=== PATIENT | male | born 1970 | race Caucasian/White ===

== ENCOUNTER 2017-04-09 03:56 | Inpatient (IN) | payer OTHER ==
[2017-04-09] VITALS (12 sets, daily range): BP systolic 110–128; BP diastolic 57–73; PULSE 74–103; RESP 16–19; O2SAT 95–100
[~2017-04-09] VITALS: Ht 188 cm; Wt 113.9 kg
[~2017-04-09 03:56] MED LIST: HYDR-4003 PO; SULF1TAB35 PO
--- NOTE | 2017-04-09 04:08 | ED.REPORT ---
HPI-Syncope Date of Service Apr 09, 2017 ED Provider: Jason Simon MD The pt is a 46 y/o male with hx of diabetes who presents to the ED after having a syncopal episode. Per the pt's , the pt got out of bed to go to the bathroom and then fell to the ground. When he tried to stand up, the patient fell and fainted again. He also complains of diarrhea. Patient denies leg swelling, nausea, dysuria or vomiting. The patient reports that when he woke up , he was extremely thirsty and only had a few sips of water yesterday. Nursing Notes Stated Complaint: FAINTED Chief Complaint: General Complaint Nursing Notes Reviewed: Yes Allergies: Coded Allergies: No Known Allergies (Unverified , 02/23/16) Scheduled Sulfamethoxazole/Trimeth 800-160 mg (Bactrim DS 800-160 mg) 1 Each Tablet 1 TABLET PO BID Scheduled PRN Hydrocodone-Acetaminophen 5-325 mg (Hydrocodone-Acetaminophen 5-325 mg) 1 Each Tablet 1 TABLET PO Q4H PRN PRN For Pain General Time Seen by Provider: 04:18 Chief Complaint Other (sycnope) Syncope Description: Multiple episodes (two) Hx Obtained From: Patient, Spouse Arrived By: Walk-in Onset Occurred: Just prior to arrival Severity: Current: No pain currently Recent Healthcare: No recent doctor visit, No recent hospitalization Similar Sx Previous: No Past Medical History Past Medical History Reports: Diabetes mellitus, Denies: Congestive heart failure Past Surgical History None reported Smoking History Unknown if Ever Smoker Social History 6 packs of beer a week Drug Use: Denies drug use Other Social History: Good social support Ambulatory Status Independent Review of Systems GI: Reports: Diarrhea, Hematochezia, Denies: Nausea, Vomiting Neurologic: Reports: Lightheaded, Syncope Complete sys rev & neg: except as marked. Additional Review of Systems Male: Denies Dysuria Physical Exam Initial Vital Signs Vital Signs (First) Date Time Temp Pulse Resp B/P Pulse Ox O2 Delivery O2 Flow Rate FiO2 04/09/17 04:04 36.2 103 18 128/66 99 Room Air Initial VS: Reviewed, Vital signs abnormal Skin: No cyanosis General/Constitutional: Awake, Alert, No acute distress Respiratory / Chest: Atraumatic, Breath sounds NL, Breath sounds = bilat, No respiratory distress Cardiovascular: Heart rate NL, Regular rhythm, Heart sounds NL Lower Extremity / Pelvis / MS: Atraumatic, Inspection NL, Full range of motion Neurologic: Oriented X3, Speech NL Head / Eyes: Atraumatic, Normocephalic slightly dry lips Neck: Atraumatic, Supple, Full range of motion, No JVD Abdomen: Atraumatic, Soft, Non-tender Skin: Atraumatic, Color NL, No rash, Warm, Dry no diaphoresis good color Interpretation & Diagnostics Lab Results Interpretation Result Diagram: 04/09/17 0500 04/09/17 0500 Test 04/09/17 05:00 White Blood Count 8.3th/mm3 (3.8-10.1) Red Blood Count 4.41mil/mm3 (4.40-5.80) Hemoglobin 11.3g/dL (13.8-17.2) Hematocrit 34.5% (41.0-50.0) Mean Corpuscular Volume 78.2fL (81-100) Mean Corpuscular Hemoglobin 25.6pg (27.0-35.0) Mean Corpuscular Hemoglobin Concent 32.8% (32.0-37.0) Red Cell Distribution Width 16.4% (12.3-15.4) Platelet Count 268bil/L (150-400) Neutrophils (%) (Auto) 65.4% (40-74) Lymphocytes (%) (Auto) 21.4% (14-46) Monocytes (%) (Auto) 10.0% (4-12) Eosinophils (%) (Auto) 2.1% (0-5) Basophils (%) (Auto) 0.5% (0-3) Sodium Level 138mEq/L (134-144) Potassium Level 4.1mEq/L (3.5-5.2) Chloride Level 100mEq/L (97-108) Carbon Dioxide Level 26mmol/L (18-29) Blood Urea Nitrogen 35mg/dL (6-24) Creatinine 0.95mg/dL (0.76-1.27) Estimat Glomerular Filtration Rate 91mL/min (>59) Glucose Level 135mg/dL (60-99) Calcium Level 9.1mg/dL (8.5-10.1) Magnesium Level 2.0mg/dL (1.6-2.6) Total Bilirubin 0.3mg/dL (0.0-1.2) Aspartate Amino Transf (AST/SGOT) 17U/L (0-50) Alanine Aminotransferase (ALT/SGPT) 26U/L (0-44) Alkaline Phosphatase 57U/L (25-150) Total Protein 6.0g/dL (6.4-8.4) Albumin 3.5g/dL (3.4-5.0) Hold Chicas Top Tube Received (Received) Lab values outside NL range: no clinical significance. ECG Interpretation Time: 04:25 Interpreted by: ED physician Abnormal Rate: Rate (101) Rhythm / Conduction: Tachycardia Re-Eval/Medical Decision Med Decision/Clinical Course 46-year-old who had poor oral intake yesterday and developed a little bit of bloody diarrhea. He had a syncopal episode while in the bathroom. His labs are unremarkable. He's received a liter of saline at this time remained dizzy with standing. His care is being turned over changes fifth with continued rehydration. It is sig Source of Hx: Old records Re-Evaluation/Progress : Time of Eval: 05:52 Re-Evaluation/Progress Note: Pt became light headed when he stood up to go urinate. His diarrhea was present with blood. Discussed plan to test stool for blood and a transfer of care to Dr. Mcdaniel. The pt understands with the plan. All questions addressed at this time. Discharge & Departure Shift Change Sign-Out Patient Care Transferred: Yes Discussed Complaint(s): Yes Impression: Primary Impression: Syncope Syncope type: unspecified Qualified Code: R55 - Syncope and collapse Referrals: Ct Faust MD Care Transferred to: Dr. Mcdaniel Care Transferred at: 06:00 Scribe Attestation Portion of this note were transcribed by Maxwell Ash and Shruti Lamb. I, Dr. Jason Simon personally performed the history, physical exam and medical decision-making; I reviewed and confirmed the accuracy of the information in the transcribed note. Signed by: Maxwell Ash and Shruti Lamb, Colin, 04/09/17. copies to: Ct Faust MD, Howard L MD Apr 09, 2017 04:08 Maxwell Ash Apr 09, 2017 04:14 Dang Lamb Apr 09, 2017 04:43
[2017-04-09] MEDS ORDERED: 0.9% Sodium Chloride 1,000 ML IV ONE ×3 (04:17→08:39)
[2017-04-09 05:14] LABS: BASOPHILS % (AUTO) 0.5 % (0-3); EOSINOPHILS % (AUTO) 2.1 % (0-5); Mean Corpuscular Hemoglobin 25.6 pg (27.0-35.0); Mean Corpuscular Volume 78.2 fL (81-100); NEUTROPHILS % (AUTO) 65.4 % (40-74); Platelet Count 268 bil/L (150-400)
[2017-04-09 07:41] LABS: APPEARANCE,URINE HAZY (CLEAR,HAZY); COLOR,URINE STRAW (YELLOW); OCCULT BLOOD,URINE NEGATIVE (NEGATIVE); UROBILINOGEN,URINE NORMAL (NORMAL)
[2017-04-09] MEDS ORDERED: Pantoprazole Inj 80 MG, Pharmacy To Mix 1 EA in 0.9% Sodium Chloride 80 ML IV ONE ×2 (08:40)
[2017-04-09] MEDS ORDERED: Pantoprazole 4 mg/mL 10 mL Inj IVPUSH ONE (08:40)
[2017-04-09] MEDS ORDERED: Ketamine 10 mg/mL 20 mL Inj ONE (09:04)
[2017-04-09] MEDS ORDERED: Propofol 10,000 mCg/mL 20 mL Inj ONE (09:04)
[2017-04-09] MEDS ORDERED: Ondansetron 2 mg/mL 2 mL Inj IVPUSH PRN (10:50)
[2017-04-09] MEDS ORDERED: Polyethylene Glycol (PEG) 17 Gm Powder PO PRN (10:50)
[2017-04-09] MEDS: 0.9% Sodium Chloride 1,000 ML IV SCH ×2 (12:02→22:37)
[2017-04-09] MEDS ORDERED: OMEG-83 PO (12:25)
[2017-04-09] MEDS ORDERED: MULT-1018 PO (12:25)
--- NOTE | 2017-04-09 12:31 | PCM.HPMED ---
Subjective Date of Service Apr 09, 2017 Primary Provider: Admitting Physician: Kaveh Herrera MD Primary Care Physician: Nopcp Attending Physician: Kaveh Herrera MD Admit Status: From the Emergency Department, Full Admit, [facility] Telemetry Chief Complaint: Syncopal episode and melena History of Present Illness: This is a 46-year-old gentleman who has a history of diabetes mellitus 2, diet controlled. 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 This is related to a right arm biceps tendon partial rupture but also for general pain associated with his job and a recent move. He has had epigastric abdominal pain for 10-12 days without dyspepsia, nausea, vomiting or diarrhea. The patient had a malodorous stool last night and then went up to get to the bathroom at 3 in the morning had 2 syncopal episodes. He became somewhat diaphoretic and then had shweta melena. The patient presented to the ER review is found to be orthostatic but not hypotensive. He was also not anemic. He was started on Protonix drip. GI was consulted directly from the emergency department. Dr. Crum. The patient has no known history of ulcers. He was wondering about hypoglycemia with his history of diabetes. His weight has been stable. He denies recent fevers or chills. No hematemesis. 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 No distress. Fluent speech. Normal affect. Normal skull. Normal nose and ears. Anicteric sclera, symmetric pupils Oropharynx is unremarkable, no facial droop. Neck is supple, normal thyroid. No adenopathy. Lungs are clear, normal effort rate. Heart is regular without murmur gallop or rub. Abdomen soft, nondistended or tender. Extremities are free of pedal edema. Good radial and pedal pulses. Skin is free of rash, lesions. No petechiae or ecchymosis. Joints are grossly normal. Cranial nerves are grossly normal. Motor strength is normal in all extremities. Normal muscular tone. Lab and Diagnostics Result Diagram: 04/09/17 0855 04/09/17 0500 Assessment & Plan 1. Upper GI bleed, present on admission and active. The plan is nothing by mouth, Protonix drip and upper endoscopy per gastroenterology today. We will also follow serial hematocrits to rule out evidence of acute blood loss anemia. 2. Diabetes mellitus 2, present on admission and stable. The plan is to follow blood sugars as needed. Correctional lispro when necessary. The patient is full resuscitation, confirmed the time of admission Admitted to inpatient status, 2 night's length of stay is anticipated. Pain Evaluation: Adequate Pain Control Resuscitation Status: CPR: Attempt Resuscitation Time spent 40 minutes Kaveh Herrera MD Apr 09, 2017 12:31
--- NOTE | 2017-04-09 13:41 | CONS ---
[address] [address] CONSULTATION REPORT PATIENT: ARMANDO MCLAUGHLIN : 1970 MR#: [id number] ADMIT: 04/09/2017 JOB ID: [id number] DATE OF SERVICE: 04/09/2017 REASON FOR CONSULTATION: It was pleasure seeing the patient at [facility] for evaluation for melena. HISTORY OF PRESENT ILLNESS: This is a 46-year-old gentleman who has no documented medical history except for a recent diagnosis of diabetes. 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 He has also been quite busy lately, with a lot of stress. He was in his usual state of health until last night where he felt like he had to pass gas, went to the bathroom, and he thought he had diarrhea but he did not know whether he had bloody stools or black stools at the time. He kind of felt sick with home, then woke up at 3:00 in the morning and thought he had to pass gas, then he fell to the ground because he got lightheaded. He tried to get up and he was unable to do so. He needed help from his . Also at that time he ended up having black diarrhea. This happened around 3:00. Because he was weak and felt faint, he came to the emergency department. In the emergency department, he was noted to have orthostasis. He was given IV fluids. His hemoglobin was 11. While he was in the emergency department he did not have any further episodes of bowel movement. He was given IV Protonix bolus and a drip. His hemoglobin at 5:00 in the morning was 11.3 and at 8:55 was 11.1. Otherwise he denies any nausea, vomiting, fever, chills, headaches. He was dizzy and lightheaded, but as long as he is lying down or sitting he does not have any issues. Currently he is a lot stronger and better. When I had him sit up, he is not dizzy or lightheaded. He denies any abdominal pain, however he did have a history of reflux symptoms in the past. No blood in the stools. No weight loss. No skin rash. PAST MEDICAL HISTORY: Diabetes. PAST SURGICAL HISTORY: None. SOCIAL HISTORY: Occasional alcohol. Denies tobacco or recreational drugs. FAMILY HISTORY: Noncontributory. MEDICATIONS: Include pantoprazole, senna, Zofran, polyethylene glycol. PHYSICAL EXAMINATION: The patient is alert, oriented. Does appear comfortable. Vitals: Temp 36.2, pulse 94, respiration 18, blood pressure 115/57. Head and neck: No icterus. No lymphadenopathy. Lungs: Clear. Cardiovascular: Regular rate and rhythm. Normal S1, S2. Abdomen: Soft, nontender, nondistended. With normoactive bowel sounds. Extremities: No pitting edema of the ankles. Skin shows no jaundice. There was a scar on his right calf. LABORATORY DATA: Platelets 268,000, hemoglobin 11.3-11.1. BUN 35, creatinine 0.95. LFTs are normal. Sugar is mildly elevated at 135 consistent with history of diabetes. IMPRESSION: A 46-year-old gentleman who most likely has an ulcer with a history of melena. Currently appears that IV Protonix is controlling his symptoms. He is currently not symptomatic. He has received about 3 L of fluids and his symptoms of dizziness, lightheadedness, and faintness have disappeared. RECOMMENDATION: 1. Continue IV Protonix drip. 2. EGD with anesthesia. Based on the EGD, will risk stratify him to whether or not he could be medically treated versus he needs endoscopic intervention or surgical intervention.
--- NOTE | 2017-04-09 14:26 | PCM.HPANE ---
Patient Data Surgeon Admitting Provider:Kaveh Herrera MD Attending Provider:Kaveh Herrera MD Primary Care Physician:Nopcp Other Provider: Reason for Visit Upper Gi Bleed Ht/WT & BMI Height (Feet): 6 Height (Inches): 2.00 Weight (Kilograms): 118.100 Body Mass Index 33.41 Allergies Coded Allergies: No Known Allergies (Unverified , 02/23/16) Past Anesthesia History Anesthesia History: Positive for:: Anesthesia Reactions (severe nausea) Diabetes History Hx Diabetes?: Yes Current Bedside Blood Glucose: 182 MRSA MRSA: No Medications Hypertension Medication: No Home Meds Incl Beta He: No Reported Medications [place]-3/Dha/Epa/Fish Oil (Fish Oil 500 mg Softgel)1 Each Capsule1 Each PO DAILY 04/09/17 Multivitamin (Multi Vitamin Daily)1 Each Tablet1 Each PO DAILY 30 Days Ref 0 04/09/17 Discontinued Scripts Sulfamethoxazole/Trimeth 800-160 mg (Bactrim DS 800-160 mg)1 Each Tablet1 Tablet PO BID #28 TABLET Prov:Braden Villasenor DO 02/23/16 Hydrocodone-Acetaminophen 5-325 mg 1 Each Tablet1 Tablet PO Q4H PRN For Pain # 12 TABLET Prov:Braden Villasenor DO 02/23/16 History History of ENT Problems?: No HEENT History: Denies:: Abnormal Airway Cataracts Difficult Intubation Dysphagia Glaucoma Hearing Problem Sinus Problem TMJ Denture Type: None Teeth Condition: Within Normal Limits Hx of Heart Problems?: No Cardiovascular History: Denies:: Congestive Heart Failure Hypertension Hx of Respiratory Problem?: Yes Respiratory History: Positive for:: Asthma (as a child) Denies:: Tuberculosis Hx Neurologic Problems?: No Hx of GI Problems?: Yes Gastrointestinal History: Positive for:: Heartburn Hx of Problems?: Yes Genitourinary History: Positive for:: Kidney Stones Denies:: Urinary Tract Infection Male Hx: Denies:: Prostate Problems Scrotal Mass Testicular Surgery Hx Musculoskeletal Problems?: Yes Musculoskeletal History: Positive for:: Back Injury (laminectomy) Musculoskeletal Trauma Denies:: Joint Replacement Hx of Psycho/Social Problems?: No Hx Surgeries?: Yes (right knee reconstruction, left foot, L4-5 S1 laminectomy. ) Hx Any Other Health Problems?: Yes Other History: Positive for:: Hospitalization Denies:: Cancer Thyroid Disease History Blood Transfusions: Positive for:: Accept Blood Products? 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 Hx Alcohol Use: NoHx Substance Use: No Smoking Status: Unknown if Ever Smoker Have You Smoked inLast 12 mo: No Stop/Bang Treated for Sleep Apnea?: No Do You Have a CPAP Machine?: No S-Snoring: Do You Snore Loudly: No T-Tired: feel tired, fatigued: No O-Obsered: Observed not breath: No P-Blood Pressure: treated: No B- Body Mass Index > 35 kg/m2: No A- Age over 50: No N- Neck Large Circumference: No G- Gender Male: Yes JACOB Total Score: 1 JACOB Risk Assessment: Low Risk, <3 Yes Risk Assessment Category Category 1A: Patient has history of documented sleep apnea, and HAS NOT received any narcotic, sedative or anesthesia administration during this stay. Category 1B: Patient has history of documented sleep apnea, and HAS received any narcotic , sedative or anesthesia administration during this stay Category 2: Patient has SUSPECTED Obstructive Sleep Apnea, and HAS received any narcotic , sedative or anesthesia administration during this stay. Category 3: Patient has SUSPECTED Obstructive Sleep Apnea and HAS NOT received narcotic, sedative or anesthesia administration during this stay. Category 4: Outpatient in Procedural Areas with known sleep apnea or who screen positive for High Risk via the STOP/BANG questionnaire. Exam Exam Vital Signs Vital Signs Date Time Temp Pulse Resp B/P Pulse Ox O2 Delivery O2 Flow Rate FiO2 04/09/17 11:12 36.8 86 18 111/70 97 Room Air 04/09/17 09:12 36.2 94 18 115/57 100 Room Air 04/09/17 06:29 97 18 118/59 100 Room Air General Appearance: Oriented X3 HEENT/AIRWAY: MP 2 Lungs: Normal Air Movement Heart: Regular Rate/Rhythm Meds/Labs/Diagnostics Admission Meds Current Medications Sodium Chloride 1,000 ml @ 0 mls/hr Q0M ONCE IV Last administered on 05:08; Start 04/09/17 at 04:17; Stop 04/09/17 at 04:20; Status DC Sodium Chloride (Normal Saline) 1,000 ml @ 0 mls/hr Q0M ONCE IV Last administered on 04/09/17 06:28; Start 04/09/17 at 06:20; Stop 04/09/17 at 06:21 ; Status DC Pantoprazole 80 mg 80 mg STAT ONCE IVPUSH Last administered on 04/09/17 09:10 ; Start 04/09/17 at 08:40; Stop 04/09/17 at 08:42; Status DC Pantoprazole 80 mg/Miscellaneous 1 ea/Sodium Chloride 100 ml @ 10 mls/hr ONCE ONCE IV Last administered on 04/09/17 09:10; Start 04/09/17 at 08:40; Stop at 18:39 Sodium Chloride 1,000 ml @ 0 mls/hr Q0M ONCE IV Last administered on 09:10; Start 04/09/17 at 08:39; Stop 04/09/17 at 08:42; Status DC Sodium Chloride (Normal Saline) 1,000 ml @ 100 mls/hr Q10H IV Last administered on 04/09/17 12:02; Start 04/09/17 at 10:46 Bedside Blood Glucose: 182 Labs Test 04/09/17 05:00 04/09/17 06:15 04/09/17 07:06 04/09/17 08:55 White Blood Count 8.3th/mm3 (3.8-10.1) Red Blood Count 4.41mil/mm3 (4.40-5.80) Mean Corpuscular Volume 78.2fL (81-100) Mean Corpuscular Hemoglobin 25.6pg (27.0-35.0) Mean Corpuscular Hemoglobin Concent 32.8% (32.0-37.0) Red Cell Distribution Width 16.4% (12.3-15.4) Platelet Count 268bil/L (150-400) Neutrophils (%) (Auto) 65.4% (40-74) Lymphocytes (%) (Auto) 21.4% (14-46) Monocytes (%) (Auto) 10.0% (4-12) Eosinophils (%) (Auto) 2.1% (0-5) Basophils (%) (Auto) 0.5% (0-3) Sodium Level 138mEq/L (134-144) Potassium Level 4.1mEq/L (3.5-5.2) Chloride Level 100mEq/L (97-108) Carbon Dioxide Level 26mmol/L (18-29) Blood Urea Nitrogen 35mg/dL (6-24) Creatinine 0.95mg/dL (0.76-1.27) Estimat Glomerular Filtration Rate 91mL/min (>59) Glucose Level 135mg/dL (60-99) Calcium Level 9.1mg/dL (8.5-10.1) Magnesium Level 2.0mg/dL (1.6-2.6) Total Bilirubin 0.3mg/dL (0.0-1.2) Aspartate Amino Transf (AST/SGOT) 17U/L (0-50) Alanine Aminotransferase (ALT/SGPT) 26U/L (0-44) Alkaline Phosphatase 57U/L (25-150) Troponin T 0.010ug/L (0.0-0.011) Total Protein 6.0g/dL (6.4-8.4) Albumin 3.5g/dL (3.4-5.0) Hold Chicas Top Tube Received (Received) Hold Urine Received (Received) Urine Color Straw (YELLOW) Urine Appearance Hazy (CLEAR,HAZY) Urine pH 7.0 (5.0-8.0) Urine Specific [place] 1.015 (1.003-1.035) Urine Protein Negativemg/dL (NEG,TRACE) Urine Glucose (UA) Negativemg/dL (NEGATIVE) Urine Ketones Negativemg/dL (NEGATIVE) Urine Occult Blood Negative (NEGATIVE) Urine Nitrite Negative (NEGATIVE) Urine Bilirubin Negative (NEGATIVE) Urine Urobilinogen Normalmg/dL (NORMAL) Urine Leukocyte Esterase Negative (NEGATIVE) Urine RBC 0-2/hpf (0-2) Urine WBC 0-5/hpf (0-5) Urine Epithelial Cells Few/hpf (NONE-MOD) Urine Crystals Amorphous phosphates Urine Bacteria None/hpf (NONE-FEW) Urine Hyaline Casts None/lpf (NONE) Urine Granular Casts None seen (NONE SEEN) Urine Waxy Casts None seen (NONE SEEN) Urine Red Blood Cell Casts None seen (NONE SEEN) Urine White Blood Cell Casts None seen (NONE SEEN) Urine Mucus None seen (None Seen) Urine Trichomonas None seen (NONE SEEN) Urine Yeast None (NONE SEEN) Urinalysis Comment None Urine Culture Reflexed Not indicated Hemoglobin 11.1g/dL (13.8-17.2) Hematocrit 33.6% (41.0-50.0) Plan Impression Patient chart reviewed, patient interviewed and anesthestic plan with risks, benefits, and alternatives discussed, and informed consent obtained. ASA Physical Status: ASA3 Severe Disease Anesthetic Plan: MAC Bene/Risks/Altern/Consents: Yes HP Complete Prior to Induction: Yes Martin Daily MD Apr 09, 2017 14:26
--- NOTE | 2017-04-09 15:01 | NUR ---
Admission pt alert and oriented middle aged man admitted to room 2025 from ER at about 1100. pt with protonix and ns infusing. pt sba to bathroom/using urinal. pt states mild to moderate abdominal tenderness. call light in reach. POC reviewed. care continues.
[2017-04-09] MEDS ORDERED: Lactated Ringer's 1,000 ML IV ONE (15:10)
--- NOTE | 2017-04-09 15:11 | PCM.ENDEGD ---
EGD Date of Service: Apr 09, 2017 Physician Umesh Crum MD Pre Procedure Diagnosis: Melena and upper GI bleed Post Procedure Dx & Findings: Duodenal ulcer with visible vessel status post epinephrine injection and cautery. Procedure Esophagogastroduodenoscopy PROCEDURE IN DETAIL: Anesthesia given by anesthesiology After proper sedation, Olympus video endoscope was inserted into patient's mouth and esophagus was successfully intubated. Scope introduced esophagus. Esophagus showed normal shiny whitish mucosa consistent with squamous cell component. Z line was intact at 40 cm from the incisors. Scope further advanced to the stomach. Stomach showed normal shiny mucosa with normal appearing rugae folds without any ulcer mass erosion. However in the antrum, there were several small superficial erosions and ulcers. Cardia fundus body antrum pylorus were all visualized. Retroflexion was done. Stomach was easily inflated and deflatable using air. Scope further advanced to the distal duodenum. In the distal duodenal bulb, there was a 5- 7 mm deep duodenal ulcer. It was right before the first pass. Does not appear to be posterior bulb. Initially, some redness and clot noted. Aggressive washing done. Clot dislodged. Visible vessel noted. Epinephrine injection performed. 4 quadrant epinephrine injection performed. Then epinephrine injected directly on the blood vessel. Half cc injected on 4 quadrants and 1 mL injected on the blood vessel. Mild oozing of blood noted. Gold probe used. Blood vessel was cauterized. No further bleeding noted. Impression Gastric erosions and superficial ulcers few numbers. Duodenal ulcer status post epinephrine injection and cautery. Successful hemostasis. Recommendation IV Protonix drip for 48 hours Clear liquid diet for 48 hours. After 48 hours, advance diet as tolerated and switch the Protonix to by mouth. Avoid NSAIDs. Presedation Assessment Risks and Benefits Informed consent was obtained from the patient after all risks and benefits including but not limited to drug reaction, infection, pain, bleeding, perforation, as well as alternatives were discussed. Patient monitoring Continuous pulse oximetry, cardiac monitoring, blood pressure monitoring, IV access, and oxygen at 2L per nasal cannula. Complications There were no periprocedural complications identified. Post Procedure Plan Post Procedure Recommendations 1. Restrict activities today. 2. Resume normal activities in the morning. 3. Resume medications. 4. GERD behavioral modification: - Avoid fatty, acidic, spicy, large meals - Do not lie down after meals - Do not eat or drink anything for at least 2 1/2 hours before going to bed at night - Discontinue tobacco and alcohol - Decrease or avoid caffeine - Avoid chocolate and mints - Decrease weight - Avoid aspirin and non steroidal anti-inflammatory agents (NSAID) such as Aleve, Advil, Mobic, Naproxen, Ibuprofen, etc 5. Add proton pump inhibitor. Take 30 minutes before 1st meal of the day. 6. Patient informed of normal post procedure side effects as bloating, drowsiness, blood streaking in the stool 7. If gastric biopsy reveal H.pylori, continue with appropriate treatment 8. If small bowel biopsy reveals celiac, continue with appropriate treatment 9. Please don't hesitate to call me with any questions Umesh Crum MD Apr 09, 2017 15:11
--- NOTE | 2017-04-09 16:00 | NUR ---
Endo pt ordered for endoscopy to elevate for GI bleed. pt aware and consented by GI. pt alert and oriented prior to and upon return. pt transported in bed with NS and protonix infusing. pt departed unit at about 1440. pt returned to room 2025 at about 1530. alert and oriented, asking for food. pt started on clear liquid per md orders, tolerating well with no nausea. pt denies pain. care continues. Addendum: 04/09/17 at 1735 by SJ SANTOS RN telemetry informed of procedure
[2017-04-10] VITALS (7 sets, daily range): BP systolic 96–129; BP diastolic 62–71; PULSE 77–97; RESP 16–20; O2SAT 94–99
--- NOTE | 2017-04-10 04:38 | NUR ---
Nutrition, GI bleed Vs as noted. No active bleeding noted. Denies nausea or emesis. No stools tonight. Remains NPO after large amount clear liquids yesterday. Pt educated and very understanding. Melatonin given at Hs after pt request. IVF saline locked. Voiding frequently per urinal. Tele sinus rhythm 80s. Resting quietly through night.
--- NOTE | 2017-04-10 09:21 | PCM.PNMED ---
Subjective Date of Service Apr 10, 2017 Subjective Patient feels a lot better. Abdomen pain resolved. No nausea. No diarrhea. No chest pain or dyspnea. HCT stable. No over night events. Exam Vital Signs Vital Sign - Last Date Time Temp Pulse Resp B/P Pulse Ox O2 Delivery O2 Flow Rate FiO2 04/10/17 08:50 36.6 83 20 96/63 94 Room Air 04/09/17 15:15 2 Intake and Output 04/09/17 04/09/17 04/10/17 Cumulative From/Thru 15:00 23:00 07:00 04/09/17 04:04 - 04/10/17 04:19 Intake Total 1000 ml 1564 ml 360 ml 4923 ml Output Total 1350 ml 2350 ml 3700 ml Balance 1000 ml 214 ml -1990 ml 1223 ml Intake Oral 560 ml 360 ml 920 ml IV Total 1000 ml 1004 ml 4003 ml Output Urine Total 1350 ml 2350 ml 3700 ml # Voids 2 2 Exam Alert and oriented -3, no distress. Fluent speech Anicteric sclera. Lungs are clear with normal rate and effort Heart is regular without murmur gallop or rub Abdomen soft nontender, flat Extremities are free of edema. Skin is free of rash or lesions. IVs and Medications Medications Reviewed: Medications were reviewed in detail Lab and Diagnostics Result Diagram: 04/10/1741904/10/17419 Assessment & Plan 1. Upper GI bleed, present on admission and resolved. Hematocrit stable overnight. Endoscopy revealed a duodenal ulcer with a visible vessel. No evidence of rebleeding. Plan is to continue Protonix drip for 48 hours per gastroenterology's recommendation. 2. Acute blood loss anemia, not present on admission and active. We will follow hematocrits every 12 hours. It appears that should not be an issue as patient's bleeding stopped. 3. Diabetes mellitus 2, present on admission and stable. The plan is to follow blood sugars as needed. Correctional lispro when necessary. The patient is full resuscitation, confirmed the time of admission Admitted to inpatient status, 2 night's length of stay is anticipated. Anticipated discharge home on April 11 Resuscitation Status: CPR: Attempt Resuscitation Kaveh Herrera MD Apr 10, 2017 09:21
--- NOTE | 2017-04-10 10:16 | PCM.PNMED ---
Subjective Date of Service Apr 10, 2017 Subjective Patient doing well. He had a bowel movement last night which started having brown material. No more bowel movements since yesterday. Exam Vital Signs Vital Sign - Last Date Time Temp Pulse Resp B/P Pulse Ox O2 Delivery O2 Flow Rate FiO2 04/10/17 10:10 84 04/10/17 08:50 36.6 20 96/63 94 Room Air 04/09/17 15:15 2 Intake and Output 04/09/17 04/09/17 04/10/17 Cumulative From/Thru 15:00 23:00 07:00 04/09/17 04:04 - 04/10/17 04:19 Intake Total 1000 ml 1564 ml 360 ml 4923 ml Output Total 1350 ml 2350 ml 3700 ml Balance 1000 ml 214 ml -1990 ml 1223 ml Intake Oral 560 ml 360 ml 920 ml IV Total 1000 ml 1004 ml 4003 ml Output Urine Total 1350 ml 2350 ml 3700 ml # Voids 2 2 Exam Patient is alert and oriented comfortable Head and neck no icterus Lungs clear Cardia vascular regular rate and rhythm normal S1 and S2 Abdomen soft nontender and nondistended with normoactive bowel sounds Extremities some pitting edema of the ankles Skin shows no jaundice Lab and Diagnostics Result Diagram: 04/10/1741904/10/17419 Assessment & Plan This is a gentleman with peptic ulcer disease visible vessel and clot. This was intervened with injection and cauterization. He is doing well. Tolerated liquid diet. He wants to eat more. H&H stable. I think he lost about 40% of his blood volume in total. There is no clinical evidence of further bleeding. #1 continue IV Protonix tomorrow morning then switch to oral Protonix 40 mg once a day for about 10 weeks. #2 follow up in GI clinic 2 weeks after discharge. #3 consider iron supplements one week after discharge. I would general counsel the patient that is going to see black stools on iron supplements. 4 avoid NSAIDs. 5 clear liquid diet starting tomorrow morning and advance as tolerated. Would like to minimize acid production to tomorrow morning. By minimizing acid production, physiologically likely to rebleed. Resuscitation Status: CPR: Attempt Resuscitation Umesh Crum MD Apr 10, 2017 10:16
[2017-04-10] MEDS ORDERED: Pantoprazole 4 mg/mL 10 mL Inj IVPUSH SCH (12:10)
--- NOTE | 2017-04-10 15:16 | NUR ---
Social Work- Initial Assessment/Readiness for Discharge/Multidisciplinary Rounds Data: See Initial Assessment and Advance Directive Intervention for additional information. Pt is a 46 year old male admitted for Upper GI Bleed. Pt's insurance is [employer]. Pt has no PCP. Pt's readmit risk score is 0/8 low risk. Pt discussed in multidisciplinary rounds, pt to advance diet prior to d/c. GI is following. No SW needs identified, no concerns related to pt's capacity for self-care. SW met with pt at bedside to discuss discharge plan, SW role explained. Pt alert and oriented x3. Pt resides at home in [place] with his where he is independent at baseline. 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 Pt uses no DME and drives. Pt has no HH or SNF history, no LTC or VA benefits. Pt is looking into a PCP given his recent health history. Pt thinks he has completed DPOA paperwork, SW requested pt to bring in copy of this information. SW placed phone number and plan on whiteboard, provided pt with d/c planning checklist. Pt likely to d/c home with his to transport via POV. No anticipated d/c needs, SW will continue to follow. Assessment: Pt who is independent at baseline Plan: Pt likely to d/c home with to transport via POV. No anticipated d/c needs, SW will continue to follow. LETICIA Burch Addendum: 04/10/17 at 1520 by DIOGENES WALDRON SS Amended: Links added.
[2017-04-10] MEDS: Pantoprazole 4 mg/mL 10 mL Inj IVPUSH SCH (21:47)
[2017-04-11 04:35] VITALS: BP 109/59; PULSE 82; RESP 20; O2SAT 96
--- NOTE | 2017-04-11 06:18 | NUR ---
Nutrition/rest Pt. a/o, denies pain or discomfort, or bleeding. Indicates desire to resume eating, educated on time window as ordered. Rested with eyes closed for extended periods of time, anticipating and wanting d/c home Tuesday. VSS.
[2017-04-11 09:02] VITALS: BP 112/66; PULSE 82; RESP 18; O2SAT 97
[2017-04-11] MEDS: Pantoprazole 4 mg/mL 10 mL Inj IVPUSH SCH (09:11)
--- NOTE | 2017-04-11 11:31 | PCM.DIMED ---
Discharge Instructions Date of Service Apr 11, 2017 Dates of Hospitalization Apr 09, 2017 at 10:31 Discharge Diagnosis Discharge Diagnosis 1. Upper GI bleed, secondary to duodenal ulcer. Improved. 2. Acute blood loss anemia, stable. 3. Diabetes mellitus 2, stable. Diet Discharge Diet: Other (soft mechanical for the next several days and then advance to general.) Activity Discharge Activity: No restrictions Call your provider Call your provider for: Shortness of breath, Bleeding Patient Instructions Patient Instructions He may use Tylenol for pain. No ibuprofen, Aleve or aspirin. Come to the emergency department for black stool. Follow-up Provider: Manjeet Hughes DO Follow-up with PCP in: 1 week Provider: Umesh Crum MD Follow-up in: 2 weeks Kaveh Herrera MD Apr 11, 2017 11:31
[2017-04-11] MEDS ORDERED: ACET325T51 PO (11:32)
[2017-04-11] MEDS ORDERED: PANT40TA2 PO (11:32)
[2017-04-11 12:00] VITALS: BP 112/67; PULSE 73; RESP 18; O2SAT 94
--- NOTE | 2017-04-11 12:24 | PCM.DC.MED ---
Discharge Summary Date of Service Apr 11, 2017 Dates of Hospitalization Date of Hospital Admission Apr 09, 2017 at 10:31 Date of Discharge: Apr 11, 2017 Providers: Admitting Physician: Kaveh Rojas MD Primary Care Physician: Nopcp Attending Physician: Kaveh Rojas MD Diagnosis at Time of Discharge Diagnosis at Time of Discharge 1. Upper GI bleed, secondary to duodenal ulcer. Improved. 2. Acute blood loss anemia, stable. 3. Diabetes mellitus 2, stable. Consultations Dr Crum, GI Procedures Invasive Procedures EGD Date of Service: Apr 09, 2017 Physician Umesh Crum MD Pre Procedure Diagnosis: Melena and upper GI bleed Post Procedure Dx & Findings: Duodenal ulcer with visible vessel status post epinephrine injection and cautery. Procedure Esophagogastroduodenoscopy PROCEDURE IN DETAIL: Anesthesia given by anesthesiology After proper sedation, Olympus video endoscope was inserted into patient's mouth and esophagus was successfully intubated. Scope introduced esophagus. Esophagus showed normal shiny whitish mucosa consistent with squamous cell component. Z line was intact at 40 cm from the incisors. Scope further advanced to the stomach. Stomach showed normal shiny mucosa with normal appearing rugae folds without any ulcer mass erosion. However in the antrum, there were several small superficial erosions and ulcers. Cardia fundus body antrum pylorus were all visualized. Retroflexion was done. Stomach was easily inflated and deflatable using air. Scope further advanced to the distal duodenum. In the distal duodenal bulb, there was a 5- 7 mm deep duodenal ulcer. It was right before the first pass. Does not appear to be posterior bulb. Initially, some redness and clot noted. Aggressive washing done. Clot dislodged. Visible vessel noted. Epinephrine injection performed. 4 quadrant epinephrine injection performed. Then epinephrine injected directly on the blood vessel. Half cc injected on 4 quadrants and 1 mL injected on the blood vessel. Mild oozing of blood noted. Gold probe used. Blood vessel was cauterized. No further bleeding noted. Impression Gastric erosions and superficial ulcers few numbers. Duodenal ulcer status post epinephrine injection and cautery. Successful hemostasis. Recommendation IV Protonix drip for 48 hours Clear liquid diet for 48 hours. After 48 hours, advance diet as tolerated and switch the Protonix to by mouth. Avoid NSAIDs. Presedation Assessment Risks and Benefits Informed consent was obtained from the patient after all risks and benefits including but not limited to drug reaction, infection, pain, bleeding, perforation, as well as alternatives were discussed. Patient monitoring Continuous pulse oximetry, cardiac monitoring, blood pressure monitoring, IV access, and oxygen at 2L per nasal cannula. Complications There were no periprocedural complications identified. Post Procedure Plan Post Procedure Recommendations 1. Restrict activities today. 2. Resume normal activities in the morning. 3. Resume medications. 4. GERD behavioral modification: - Avoid fatty, acidic, spicy, large meals - Do not lie down after meals - Do not eat or drink anything for at least 2 1/2 hours before going to bed at night - Discontinue tobacco and alcohol - Decrease or avoid caffeine - Avoid chocolate and mints - Decrease weight - Avoid aspirin and non steroidal anti-inflammatory agents (NSAID) such as Aleve, Advil, Mobic, Naproxen, Ibuprofen, etc 5. Add proton pump inhibitor. Take 30 minutes before 1st meal of the day. 6. Patient informed of normal post procedure side effects as bloating, drowsiness, blood streaking in the stool 7. If gastric biopsy reveal H.pylori, continue with appropriate treatment 8. If small bowel biopsy reveals celiac, continue with appropriate treatment 9. Please don't hesitate to call me with any questions Umesh Crum MD Apr 09, 2017 15:11 <Electronically signed by Umesh Crum MD> 04/09/17 1512 Report status: Signed Transcribed by: SHERYL 04/09/17 1511 REPORT#: [id number] cc: Umesh Crum MD; Kaveh Rojas MD; PCP, NO Brief History This is a 46-year-old gentleman who has a history of diabetes mellitus 2, diet controlled. 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 This is related to a right arm biceps tendon partial rupture but also for general pain associated with his job and a recent move. He has had epigastric abdominal pain for 10-12 days without dyspepsia, nausea, vomiting or diarrhea. The patient had a malodorous stool last night and then went up to get to the bathroom at 3 in the morning had 2 syncopal episodes. He became somewhat diaphoretic and then had shweta melena. The patient presented to the ER review is found to be orthostatic but not hypotensive. He was also not anemic. He was started on Protonix drip. GI was consulted directly from the emergency department. Dr. Crum. The patient has no known history of ulcers. He was wondering about hypoglycemia with his history of diabetes. His weight has been stable. He denies recent fevers or chills. No hematemesis. Hospital Course This is a pleasant gentleman who presented with melanotic GI bleed. He did have evidence of acute blood loss anemia. The patient was placed on a Protonix IV twice a day. He underwent endoscopy revealing a duodenal ulcer which was cauterized. The patient did well after procedure was slowly advanced on his diet. His hematocrit on the day of discharge was stable. The patient also has a history of diabetes which is diet-controlled which was not problematic while in the hospital. His hematocrit was about 30 on the day of discharge. She will follow up with gastroenterology in 2 weeks and is asked to establish care with Dr. Hughes in [place] near his home within the next 1-2 weeks. Exam Vital Signs (Last) Date Time Temp Pulse Resp B/P Pulse Ox O2 Delivery O2 Flow Rate FiO2 04/11/17 09:02 36.4 82 18 112/66 97 Room Air 04/09/17 15:15 2 Exam Patient was seen and examined on the day of discharge Test 04/09/17 05:00 04/09/17 06:15 04/09/17 07:06 04/10/17 04:20 White Blood Count 8.3th/mm3 (3.8-10.1) Red Blood Count 4.41mil/mm3 (4.40-5.80) Mean Corpuscular Volume 78.2fL (81-100) Mean Corpuscular Hemoglobin 25.6pg (27.0-35.0) Mean Corpuscular Hemoglobin Concent 32.8% (32.0-37.0) Red Cell Distribution Width 16.4% (12.3-15.4) Platelet Count 268bil/L (150-400) Neutrophils (%) (Auto) 65.4% (40-74) Lymphocytes (%) (Auto) 21.4% (14-46) Monocytes (%) (Auto) 10.0% (4-12) Eosinophils (%) (Auto) 2.1% (0-5) Basophils (%) (Auto) 0.5% (0-3) Magnesium Level 2.0mg/dL (1.6-2.6) Troponin T 0.010ug/L (0.0-0.011) Hold Chicas Top Tube Received (Received) Hold Urine Received (Received) Urine Color Straw (YELLOW) Urine Appearance Hazy (CLEAR,HAZY) Urine pH 7.0 (5.0-8.0) Urine Specific [place] 1.015 (1.003-1.035) Urine Protein Negativemg/dL (NEG,TRACE) Urine Glucose (UA) Negativemg/dL (NEGATIVE) Urine Ketones Negativemg/dL (NEGATIVE) Urine Occult Blood Negative (NEGATIVE) Urine Nitrite Negative (NEGATIVE) Urine Bilirubin Negative (NEGATIVE) Urine Urobilinogen Normalmg/dL (NORMAL) Urine Leukocyte Esterase Negative (NEGATIVE) Urine RBC 0-2/hpf (0-2) Urine WBC 0-5/hpf (0-5) Urine Epithelial Cells Few/hpf (NONE-MOD) Urine Crystals Amorphous phosphates Urine Bacteria None/hpf (NONE-FEW) Urine Hyaline Casts None/lpf (NONE) Urine Granular Casts None seen (NONE SEEN) Urine Waxy Casts None seen (NONE SEEN) Urine Red Blood Cell Casts None seen (NONE SEEN) Urine White Blood Cell Casts None seen (NONE SEEN) Urine Mucus None seen (None Seen) Urine Trichomonas None seen (NONE SEEN) Urine Yeast None (NONE SEEN) Urinalysis Comment None Urine Culture Reflexed Not indicated Hemoglobin 9.8g/dL (13.8-17.2) Sodium Level 138mEq/L (134-144) Potassium Level 4.0mEq/L (3.5-5.2) Chloride Level 106mEq/L (97-108) Carbon Dioxide Level 21mmol/L (18-29) Blood Urea Nitrogen 12mg/dL (6-24) Creatinine 0.78mg/dL (0.76-1.27) Estimat Glomerular Filtration Rate 114mL/min (>59) Glucose Level 111mg/dL (60-99) Calcium Level 8.4mg/dL (8.5-10.1) Total Bilirubin 0.5mg/dL (0.0-1.2) Aspartate Amino Transf (AST/SGOT) 17U/L (0-50) Alanine Aminotransferase (ALT/SGPT) 24U/L (0-44) Alkaline Phosphatase 55U/L (25-150) Total Protein 5.3g/dL (6.4-8.4) Albumin 3.4g/dL (3.4-5.0) Test 04/11/17 10:40 Hematocrit 31.9% (41.0-50.0) Discharge Medications Discharge Medications Multivitamin (Multi Vitamin Daily) 1 Each Tablet 1 TABLET PO DAILY (Reported) [place]-3/Dha/Epa/Fish Oil (Fish Oil 500 mg Softgel) 1 Each Capsule 1 CAPSULE PO DAILY (Reported) Pantoprazole DR (Protonix) 40 Mg Tablet 40 MG PO BID Prescribed by: KAVEH ROJAS MD As needed Acetaminophen (Acetaminophen) 325 Mg Tablet 325 MG PO Q4H PRN PRN For Pain Prescribed by: KAVEH ROJAS MD Followup Plan Disposition: Home Discharge Diet: Other (soft mechanical for the next several days and then advance to general.) Discharge Activity: No restrictions Patient Instructions He may use Tylenol for pain. No ibuprofen, Aleve or aspirin. Come to the emergency department for black stool. Follow-up Provider: Manjeet Hughes DO Follow-up with PCP in: 1 week Provider: Umesh Crum MD Follow-up in: 2 weeks Time spent 45 minutes Kaveh Rojas MD Apr 11, 2017 12:24
--- NOTE | 2017-04-11 12:33 | NUR ---
Discharge pt ordered for discharge home and pt agreeable. discharge instructions and medications reviewed with patient and . pt escorted via wheelchair to front lobby with all belongings at 1230.
--- NOTE | 2017-04-11 13:44 | NUR ---
Social Work: Discharge/Multidisciplinary Rounds D: Pt discussed in multidisciplinary rounds; the patient is medically stable for discharge home. Capacity for self-care and d/c needs discussed. No concerns or needs identified. Patient is eager to leave and participating in his own care. GLOBAL ACCOUNT EXECUTIVE met with the patient at bedside to confirm discharge plan and assess for unmet needs. Patient identifies no concerns and states his will be transporting him home. EMR reviewed and no sw needs or barriers identified. RN to complete discharge education and ppw with patient. A: Pt who is I at baseline. P: Pt to discharge home via POV and no discharge needs. LETICIA Ellington
--- NOTE | 2017-04-11 15:05 | PCM.PNMED ---
Subjective Date of Service Apr 11, 2017 Subjective Patient tolerated regular diet. Bowel movements are now brown. Hemoglobin stable. Exam Vital Signs Vital Sign - Last Date Time Temp Pulse Resp B/P Pulse Ox O2 Delivery O2 Flow Rate FiO2 04/11/17 12:00 36.8 73 18 112/67 94 Room Air 04/09/17 15:15 2 Intake and Output 04/10/17 04/10/17 04/11/17 Cumulative From/Thru 15:00 23:00 07:00 04/09/17 04:04 - 04/11/17 06:05 Intake Total 360 ml 5383 ml Output Total 3700 ml Balance 360 ml 1683 ml Intake Oral 360 ml 1280 ml IV Total 4103 ml Output Urine Total 3700 ml # Voids 4 6 Exam Patient is alert and oriented Head and neck no icterus Lungs clear Cardia vascular regular rate rhythm, S1-S2 Abdomen soft nontender and nondistended with normoactive bowel sounds Extremities no pitting edema at ankles Skin shows no jaundice Lab and Diagnostics Result Diagram: 04/11/17 1040 04/10/17 0420 Assessment & Plan This is a gentleman with peptic ulcer disease visible vessel and clot. This was intervened with injection and cauterization. He is doing well. Tolerated regular diet. H&H stable. I think he lost about 40% of his blood volume in total. There is no clinical evidence of further bleeding. This been 48 hours since he was placed on IV PPI. Risk of rebleeding at this to look point is extremely low. Patient's having normal brown stools. I saw this patient right before he got discharged. #1 switch to oral Protonix 40 mg once a day for about 10 weeks. #2 follow up in GI clinic 2 weeks after discharge. #3 consider iron supplements one week after discharge. 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 4 avoid NSAIDs. We will sign off. Resuscitation Status: CPR: Attempt Resuscitation Umesh Crum MD Apr 11, 2017 15:05
== END 2017-04-11 12:30 | disposition home or self-care (01) | DRG 378 ==
LOC: SED 03:56 → PCC 10:31
PROVIDERS: ADMIT Hospitalist; ATTEND Hospitalist
PROC: 0DJ08ZZ Inspection of Upper Intestinal Tract, Via Natural or Artificial Opening Endoscopic (ICD-10-PCS; principal; 2017-04-09 14:30)
PROC: 3E0G8GC Introduction of Other Therapeutic Substance into Upper GI, Via Natural or Artificial Opening Endoscopic (ICD-10-PCS; 2017-04-09 14:30)
DX: K26.0 Acute duodenal ulcer with hemorrhage (principal); D62 Acute posthemorrhagic anemia; R55 Syncope and collapse; E11.8 Type 2 diabetes mellitus with unspecified complications